=== PATIENT | male | born 1945 | race Caucasian/White ===

== ENCOUNTER 2022-04-29 15:32 | Emergency (ER) | payer MEDICARE, OTHER ==
[2022-04-29 17:07] LABS: BASOPHIL 0.4 % (0-2); EOSINOPHIL 1.2 % (0-7); HCT 37.5 % (42.0-52.0); HGB 12.9 g/dl (13.2-18.0); LYMPHOCYTE 30.6 % (15-48); MCH 36.9 pg (25.0-31.0); MCHC 34.4 g/dL (32.0-36.0); MCV 107.1 fL (78.0-100.0); MONOCYTE 9.4 % (0-12); MPV 9.4 fL (6.0-9.5); NEUTROPHIL 58.2 % (41-80); NRBC 0.5; PLT 244 K/uL (150-400); RDW 16.4 % (11.5-14.0); WBC 9.3 K/uL (4.0-10.5)
[2022-04-29 17:14] LABS: PTT 22.2 SECONDS (24.4-34.7)
[2022-04-29 17:15] LABS: INR 1.4 (0.9-1.2); PROTHROMBIN TIME 16.5 SECONDS (11.8-13.4)
[2022-04-29 17:25] LABS: ALBUMIN 2.9 g/dL (3.4-5.0); BILIRUBIN - TOTAL 0.4 mg/dL (0.2-1.0); BUN/CREAT RATIO (CALC) 9.5 RATIO; CREATININE 0.74 mg/dL (0.67-1.17); GLOBULIN (CALCULATION) 3.6 g/dL; POTASSIUM 4.2 mmol/L (3.5-5.1); TOTAL PROTEIN 6.5 g/dL (6.4-8.2)
[2022-04-29 19:21] LABS: CORONAVIRUS 2019 SARS-COV-2 NEGATIVE (NEGATIVE); INFLUENZA A NAA NEGATIVE (NEGATIVE)
== END 2022-04-29 19:10 | disposition other institution (70) ==
LOC: FER 15:32
PROVIDERS: Emergency Medicine
DX: I63.532 Cerebral infarction due to unspecified occlusion or stenosis of left posterior cerebral artery (principal); I10 Essential (primary) hypertension; Z20.822 Contact with and (suspected) exposure to COVID-19
CPT/HCPCS: 36415; 70450; 70551; 71045; 80053; 82553; 84484; 85025; 85610; 85730; 93005; J2060; U0002